=== PATIENT | female | born 1935 | race Caucasian/White ===

== ENCOUNTER → 2016-10-17 | Outpatient (CLI) | payer BC ==
[2016-10-17 12:56] LABS: MEAN CORPUSCULAR HEMOGLOBIN 31.5 pg (27.0-33.0); MEAN CORPUSCULAR HGB CONC 33.2 g/dl (32.0-36.5); MEAN CORPUSCULAR VOLUME 94.7 fl (80.0-96.0); RED CELL DISTRIBUTION WIDTH 14.8 % (11.5-14.5); WHITE BLOOD COUNT 6.7 K/mm3 (4.0-10.0)
[2016-10-17 13:56] LABS: ALT/SGPT 20 U/L (12-78); ANION GAP 8 MEQ/L (8-16); AST/SGOT 16 U/L (15-37); BLOOD UREA NITROGEN 11 MG/DL (7-18); CARBON DIOXIDE LEVEL 30 MEQ/L (21-32); CHLORIDE LEVEL 103 MEQ/L (98-107); CHOLESTEROL LEVEL 161 MG/DL (<200); CREATININE FOR GFR 0.86 MG/DL (0.55-1.02); GLOMERULAR FILTRATION RATE > 60.0 (>39); GLUCOSE, FASTING 132 MG/DL (83-110); POTASSIUM SERUM 4.5 MEQ/L (3.5-5.1); SODIUM LEVEL 141 MEQ/L (136-145); TRIGLYCERIDES LEVEL 61 MG/DL (<150)
== END ==
LOC: M WUC 09:00
PROVIDERS: ATTEND Family Medicine
DX: E78.4 Other hyperlipidemia (principal); I48.91 Unspecified atrial fibrillation; E11.9 Type 2 diabetes mellitus without complications

== ENCOUNTER → 2017-01-30 | Outpatient (CLI) | payer MEDICARE ==
--- NOTE | 2017-01-30 13:53 | REP ---
RIGHT FOOT, FOUR VIEWS: HISTORY: Contusion. There is no acute fracture or dislocation. There is narrowing of the first metatarsophalangeal joint space with associated osteophyte formation. There is narrowing of the intermediate and distal interphalangeal joint spaces. An osteophyte is present on the inferior calcaneus. IMPRESSION: Degenerative change as described above. Signed by Prosper Pina MD 01/30/2017 02:15 P
== END ==
LOC: M WUC 12:06
PROVIDERS: ATTEND Physician Assistant
DX: M19.071 Primary osteoarthritis, right ankle and foot (principal)

== ENCOUNTER → 2018-02-17 | Outpatient (REF) | payer MEDICARE | LOC: M WUC 14:39 | DX: L03.115 Cellulitis of right lower limb (principal) | CPT/HCPCS: 87186 ==

== ENCOUNTER → 2018-12-15 | Outpatient (REF) | payer MEDICARE | LOC: M LAB REF 16:19 | PROVIDERS: ATTEND Nurse Practitioner Family | DX: N39.0 Urinary tract infection, site not specified (principal) ==

== ENCOUNTER 2019-10-05 06:08 | Emergency (ER) | payer MEDICARE ==
[~2019-10-05] VITALS: Ht 157.5 cm; Wt 82.7 kg
[~2019-10-05 06:08] MED LIST: CALC600T57 PO; CARV6.25 PO; LISI20TA35 PO; MULTTAB24 PO; OXYB10TA23 PO; XARE10TA PO
[2019-10-05 06:45] LABS: BASO # 0.1 10^3/uL (0.0-0.2); BASO % 0.6 % (0.0-1.0); EOS # 0.2 10^3/uL (0.0-0.5); EOS % 2.2 % (0.0-3.0); HEMATOCRIT 43.5 % (36.0-47.0); HEMOGLOBIN 14.3 g/dl (12.0-15.5); LYMPH # 1.3 10^3/uL (1.5-5.0); LYMPH % 14.8 % (24.0-44.0); MEAN CORPUSCULAR HEMOGLOBIN 30.3 pg (27.0-33.0); MEAN CORPUSCULAR HGB CONC 32.9 g/dl (32.0-36.5); MEAN CORPUSCULAR VOLUME 92.2 fl (80.0-96.0); MONO # 0.8 10^3/uL (0.0-0.8); NEUTROPHILS # 6.4 10^3/uL (1.5-8.5); NEUTROPHILS % 73.2 % (36.0-66.0); PLATELET COUNT, AUTOMATED 595 10^3/uL (150-450); RED BLOOD COUNT 4.72 10^6/uL (4.00-5.40); WHITE BLOOD COUNT 8.7 10^3/uL (4.0-10.0)
[2019-10-05] MEDS ORDERED: ASPIRIN 325 MG TAB PO ONE (06:45)
[2019-10-05] MEDS ORDERED: XARE15TA PO (06:46)
[2019-10-05] MEDS ORDERED: TORS10TA3 PO (06:46)
[2019-10-05] MEDS ORDERED: CLOP75TA2 PO (06:46)
[2019-10-05] MEDS ORDERED: CARV12.5 PO (06:46)
[2019-10-05] MEDS ORDERED: DITR1TAB PO (06:46)
[2019-10-05] MEDS ORDERED: entresto PO (06:46)
[2019-10-05] MEDS ORDERED: GLIM1TAB4 PO (06:46)
[2019-10-05] MEDS ORDERED: ATOR80TA59 PO (06:46)
[2019-10-05 06:56] LABS: INR 3.33; PROTHROMBIN TIME 33.8 SECONDS (11.8-14.0)
[2019-10-05 07:13] LABS: CALCIUM LEVEL 8.6 MG/DL (8.8-10.2); CK-MB VALUE MASS 1.9 NG/ML (<3.6); CREATININE FOR GFR 1.01 MG/DL (0.55-1.30); GLOMERULAR FILTRATION RATE 55.9 (>32); MB/CK RELATIVE INDEX 3.58 (< OR =4); POTASSIUM SERUM 3.9 MEQ/L (3.5-5.1); TROPONIN I 0.03 NG/ML (< 0.10)
[2019-10-05] MEDS ORDERED: NORCO, ANEXSIA 5/325MG TABLET (HYDROcodone/ACETAMINOPHEN) PO ONE ×2 (08:00→11:45)
[2019-10-05] MEDS ORDERED: ISOVUE-370 76% 100ML VIAL As Ordered ONE (08:28)
--- NOTE | 2019-10-05 09:44 | REP ---
REASON FOR EXAM: Chest pain. There are no priors for comparison. The technique utilized in obtaining the radiograph has magnified the cardiac silhouette and accentuated the interstitial markings. There is cardiomegaly. There is interstitial fibrotic change. There are no patchy opacities or pleural effusions. The osseous structures are within normal limits for the patient's age. IMPRESSION: Cardiomegaly without evidence of acute cardiopulmonary disease. Electronically Signed by Dayron Jones DO 10/05/2019 10:11 A
--- NOTE | 2019-10-05 10:04 | REP ---
CT ANGIOGRAM CHEST: TECHNIQUE: Axial contrast-enhanced images from the thoracic inlet to the upper abdomen using 100 mL Isovue-370 intravenous contrast material with multiplanar reformations. No CT evidence of pulmonary embolism. There is no thoracic aortic aneurysm or dissection. The heart is mild to moderately enlarged. There is no mediastinal, hilar, or chest wall lymphadenopathy. There is no pleural or pericardial effusions. There is moderate hiatal hernia. There is no infiltrate in either lung. There are degenerative changes of spine. IMPRESSION: No evidence of active pulmonary disease. No evidence of pulmonary embolism. Mild to moderate cardiomegaly. Electronically Signed by Garrett Carrillo MD 10/05/2019 01:14 P
[2019-10-05 13:18] LABS: CK-MB VALUE MASS 2.3 NG/ML (<3.6); MB/CK RELATIVE INDEX 5.35 (< OR =4); TROPONIN I 0.03 NG/ML (< 0.10)
[2019-10-05] MEDS ORDERED: NORC1TAB7 PO (14:11)
[2019-10-05 14:15] VITALS: BP 151/66
[2019-10-05] MEDS ORDERED: ACETAMINOPHEN 650 MG SUPP PR ONE (14:15)
--- NOTE | 2019-10-05 20:28 | ECGEPIP ---
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
--- NOTE | 2019-10-05 20:36 | ECGEPIP ---
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
== END 2019-10-05 14:40 | disposition home or self-care (01) ==
LOC: M ED 06:08 → EDBD 06:08 → M ED 14:40
DX: R07.9 Chest pain, unspecified (principal); I48.91 Unspecified atrial fibrillation; E11.9 Type 2 diabetes mellitus without complications; I10 Essential (primary) hypertension; Z79.899 Other long term (current) drug therapy; Z79.01 Long term (current) use of anticoagulants
CPT/HCPCS: 36415; 71045; 71275; 80048; 81001; 82550; 82553; 84484; 85025; 85610; 85730; 93005; 99285; Q9967

== ENCOUNTER → 2021-12-23 | Outpatient (REF) | payer MEDICARE ==
[~2021-12-23] MED LIST changes: +ATOR80TA59 PO; +CARV12.5 PO; +CLOP75TA2 PO; +DITR1TAB PO; +GLIM1TAB4 PO; +NORC1TAB7 PO; +TORS10TA3 PO; +XARE15TA PO; +entresto PO
== END ==
LOC: M LAB REF 19:41
PROVIDERS: ATTEND Internal Medicine
DX: M54.50 Low back pain, unspecified (principal)